=== PATIENT | female | born 1970 | race Caucasian/White ===

== ENCOUNTER 2017-02-26 16:46 | Emergency (ER) | payer MEDICAID, OTHER ==
[2017-02-26 16:57] VITALS: BP 113/71
--- NOTE | 2017-02-26 17:28 | UC ---
Breast Complaint - HPI Summary HPI Summary: 46 y/o female presents to the urgent care c/o left breast pain, redness and pus draining from the ereola around 0530 am. Pt reports she noticed her breast was red yesterday. Pain is 7/10 specially with touch. She has had a common cold for the past 3 weeks. Pt has not taken anything to alleviate pain. Pt states she has Hx of Breast augmentation for the past 20 years. and Hx of breast Cancer in the family. Pt deneis Hx of MRSA, no drainage from nipple, COB, chest pain, abdominal pain, N/V/D, recent lost of weight. - History of Current Complaint Hx Obtained From: Patient Breast Chief Complaint: Pain, Drainage - from left areola landon gland, Left , Other: Onset/Duration: Started Days Ago - 1 day, Still Present Timing: Constant Breast Pain Radiates To: Other: - localized to the left breasr Breast Pain Aggravating Factors: Palpation Breast Pain Alleviating Factors: Nothing Breast Associated Signs/Symptoms: Redness, Warmth - Additional Pertinent History Breast History: Breast Surgery (Augmentation) - 20 years ago - Allergy/Home Medications Allergies/Adverse Reactions: Allergies Allergy/AdvReac Type Severity Reaction Status Date / Time Codeine Allergy Nausea Verified 02/26/17 16:58 PMH/Surg Hx/FS Hx/Imm Hx Previously Healthy: Yes - Pt denies PMHx - Surgical History Surgical History: Yes Surgery Procedure, Year, and Place: Bilateral breast augmentation, - Family History Known Family History: Positive: Hypertension Family History: Breast cancer - Social History Occupation: Employed Full-time Lives: With Family Alcohol Use: None Substance Use Type: None Smoking Status (MU): Light Every Day Tobacco Smoker Type: Cigarettes Amount Used/How Often: 1/2 PPD - 1ppd Review of Systems Constitutional: Negative Skin: Other - Left breast pain, redness and draining pus Eyes: Negative ENT: Negative Respiratory: Negative Cardiovascular: Negative Gastrointestinal: Negative Genitourinary: Negative Motor: Negative Neurovascular: Negative Musculoskeletal: Negative Neurological: Negative Psychological: Negative Is Patient Immunocompromised?: No All Other Systems Reviewed And Are Negative: Yes Physical Exam Triage Information Reviewed: Yes Vital Signs: Initial Vital Signs Temp 98.6 F 02/26/17 16:54 Pulse 80 02/26/17 16:54 Resp 12 12/13/17 16:54 BP 113/71 02/26/17 16:54 Pulse Ox 100 02/26/17 16:54 - Additional Comments Vital Signs Reviewed: Yes General: well developed, well nourished female sitting in the examining table w/ o any apparent distress Eye Exam: Normal Eyes: Positive: Conjunctiva Clear - PERRLA, EOMI, fundi grossly normal ENT: Positive: Normal ENT inspection, Hearing grossly normal, Pharynx normal, TMs normal Neck: Positive: Supple, Nontender, No Lymphadenopathy Respiratory: Positive: Chest non-tender, Lungs clear, Normal breath sounds, No respiratory distress Cardiovascular: Positive: RRR, No Murmur, Pulses Normal, Brisk Capillary Refill Abdomen Description: Positive: Nontender, No Organomegaly, Soft. Negative: CVA Tenderness (R), CVA Tenderness (L) Bowel Sounds: Positive: Present Musculoskeletal: Positive: Strength Intact, ROM Intact, No Edema Neurological: Positive: Alert, Muscle Tone Normal Psychological Exam: Normal Skin: Positive: rashes - B/L breast symmetrical and normal contour.Positive erythematous patch with indistinct borders in the left breast around 7 o'clock and abou 2 .0cm x1cm in size with a Landon gland yellowish in color, no longer draining any discharge, tender to palpation warm to touch mild induration. No [place] observed, no masses palpated on both breast, no B/ L nipple drainage or retraction, no lymphadenopathy palpated Breast Pain Course/Dx - Course Course Of Treatment: 46 y/o female presents to the urgent care c/o left breast pain, redness and pus draining from the ereola around 0530 am. Pt reports she noticed her breast was red yesterday. Pain is 7/10 specially with touch. She has had a common cold for the past 3 weeks. Pt has not taken anything to alleviate pain. Pt states she has Hx of Breast augmentation for the past 20 years. and Hx of breast Cancer in the family. Pt deneis Hx of MRSA, no drainage from nipple, COB, chest pain, abdominal pain, N/V/D, recent lost of weight.Hx obtained. Pt with cellulitis of the left breast around 7o'clock with a Landon glans infected not longer draining any discharge, no masses of drainage from nipple observed on examination. Pt's hasn't done a mammogram screening or ultrasound in the past. Dr Hardwick consulted on Pt's symptoms. She recommended double ABX treatment and referral with surgeon for further treatment. Pt Rx Keflex PO, Bactrim PO, Ibuprofen Po for pain, and bacitracin topical ointment. Pt strongly advised to f/u referral with Surgeon Dr Pool as soon as possible for further evalaution and treatment or her PCP. Pt educated in the improtance of mammogram or ultrasound for further evalaution.All questions ansawered at Pt 's satisfaction. Pt understood and agreed with D/C instruction instructions. Pt left the clinic A&OX3 - Differential Diagnoses Differential Diagnosis/HQI/PQRI: Breast Abscess, Breast Mass, Candidia Dermatitis, Fibrocystic Breast Disease, Mastitis, Other: - cellulitis - Diagnoses Provider Diagnoses: Cellulitis of left breast - Provider Notifications Discussed Care Of Patient With: Ingrid Hardwick - Dr Hardwick agreed with Pt's plan of care Discharge - Discharge Plan Condition: Stable Disposition: HOME Prescriptions: Bacitracin OINTMENT* 1 applic TOPICAL TID #1 tube Cephalexin CAP* [Keflex CAP*] 500 mg PO QID #28 cap Ibuprofen TAB* [Motrin TAB* 800 MG] 800 mg PO Q6H PRN #20 tab PRN Reason: Pain Sulfamethox/Trimethoprim DS* [Bactrim DS 800/160 TAB*] 1 tab PO BID #20 tab Patient Education Materials: Cellulitis (ED) Referrals: [facility] [[facility]] - 1 Day Jefferson Pool MD [Medical Doctor] - 1 Day Additional Instructions: 1-Please take full course of Antibiotic to avoid resistance. 2- If redness and swelling doubles in size beyond what was demarcated after 48 hrs of taking antibiotic and fever develops please go to the ER immediately. 3-Apply warm compresses,and apply bacitracin topical antibiotic as directed 4-Please F/u Surgeon or your PCP 1-2 days for further evaluation and treatment to do an ultrasound or mammogram
== END 2017-02-26 17:36 | disposition home or self-care (01) ==
LOC: UCEAST 16:46
DX: N61.0 Mastitis without abscess (principal); Z88.5 Allergy status to narcotic agent; F17.210 Nicotine dependence, cigarettes, uncomplicated
CPT/HCPCS: 99212; G0463

== ENCOUNTER 2018-03-04 14:35 | Emergency (ER) | payer SELFPAY ==
[2018-03-04 14:46] VITALS: BP 125/84
--- NOTE | 2018-03-04 16:04 | UC ---
FLU HPI - HPI Summary HPI Summary: 47-year-old female presents with 3 day history of sore throat and fever associated with nasal congestion, and clear nasal discharge, nonproductive cough , fatigue, body aches, and general malaise. Max fever 101 F. Denies chest pain, shortness of breath, wheezing, abdominal pain, nausea, or vomiting. - History of Current Complaint Chief Complaint: UCGeneralIllness Stated Complaint: SORE THROAT, BODY ACHES Time Seen by Provider: 03/04/18 15:42 Hx Obtained From: Patient Hx Last Menstrual Period: 02/27/18 Pain Intensity: 10 - Allergy/Home Medications Allergies/Adverse Reactions: Allergies Allergy/AdvReac Type Severity Reaction Status Date / Time codeine Allergy Intermediate Nausea Verified 03/04/18 14:45 Home Medications: Home Medications NK [No Home Medications Reported] 03/04/18 [History Confirmed 03/04/18] PMH/Surg Hx/FS Hx/Imm Hx Previously Healthy: Yes - Denies significant PMH. - Surgical History Surgical History: Yes Surgery Procedure, Year, and Place: Bilateral breast augmentation, - Family History Known Family History: Positive: Hypertension Family History: Breast cancer - Social History Occupation: Employed Full-time Lives: With Family Alcohol Use: None Substance Use Type: None Smoking Status (MU): Heavy Every Day Tobacco Smoker Type: Cigarettes Amount Used/How Often: 1/2 PPD - 1ppd Review of Systems All Other Systems Reviewed And Are Negative: Yes Constitutional: Positive: Fever, Chills, Fatigue Skin: Negative: Rash Eyes: Negative: Drainage, Eye Redness ENT: Positive: Sore Throat, Ear Ache, Nasal Discharge, Sinus Congestion. Negative: Sinus Pain/Tenderness Respiratory: Negative: Shortness Of Breath, Cough Cardiovascular: Negative: Palpitations, Chest Pain Gastrointestinal: Negative: Abdominal Pain, Vomiting, Nausea Is Patient Immunocompromised?: No Physical Exam - Summary Physical Exam Summary: GENERAL APPEARANCE: Well developed, well nourished, alert and cooperative, and appears to be in no acute distress. EYES: Conjunctiva clear. No discharge. Vision is grossly intact. EARS: External auditory canals and tympanic membranes clear, hearing grossly intact. NOSE: Nasal congestion with clear nasal discharge. THROAT: Pharyngeal erythema without tonsilar edema or exudate. Oral cavity normal. Teeth and gingiva in good general condition. NECK: Neck supple, non-tender without lymphadenopathy. CARDIAC: Normal S1 and S2. No S3, S4 or murmurs. Rhythm is regular. There is no peripheral edema, cyanosis or pallor. Extremities are warm and well perfused. Capillary refill is less than 2 seconds. LUNGS: Clear to auscultation and percussion without rales, rhonchi, wheezing or diminished breath sounds. ABDOMEN: Positive bowel sounds. Soft, nondistended, nontender. No guarding or rebound. No masses or hepatosplenomegally. MUSKULOSKELETAL: ROM intact to all extremities. No joint erythema or tenderness. Normal muscular development. Normal gait. SKIN: Skin normal color, texture and turgor with no lesions or eruptions. Triage Information Reviewed: Yes Vital Signs: Initial Vital Signs Temp 98.0 F 03/04/18 14:41 Pulse 110 03/04/18 14:41 Resp 18 03/04/18 14:41 BP 125/84 03/04/18 14:41 Pulse Ox 100 03/04/18 14:41 Vital Signs Reviewed: Yes Diagnostics - Laboratory Diagnostic Studies Completed/Ordered: Rapid strep negative. Rapid flu negative. Flu Course/Dx - Course Course Of Treatment: 47-year-old female presents with 3 day history of sore throat and fever associated with nasal congestion, and clear nasal discharge, nonproductive cough, fatigue, body aches, and general malaise. Afebrile. Mild tachycardia otherwise vital signs stable. Exam revealed nasal congestion with clear nasal discharge, pharyngeal erythema without tonsillar swelling or exudate , nonproductive cough otherwise the exam was unremarkable. Rapid strep negative. Rapid flu negative. Recommending symptomatic treatment for viral URI. She is to follow-up with her primary care provider in 5-7 days if symptoms persist. Warning symptoms were reviewed with the patient. Verbalizes understanding and agrees with plan of care. - Differential Dx/Diagnosis Differential Diagnosis/HQI/PQRI: Bronchitis, Influenza, Pneumonia, Upper Respiratory Infection Provider Diagnosis: Viral URI with cough Discharge - Sign-Out/Discharge Documenting (check all that apply): Patient Departure All imaging exams completed and their final reports reviewed: No Studies - Discharge Plan Condition: Stable Disposition: HOME Patient Education Materials: Upper Respiratory Infection (ED) Forms: *Work Release Referrals: No Primary Care Phys,NOPCP [Primary Care Provider] - Additional Instructions: The rapid strep test performed in the clinic today was negative. The rapid flu was also negative. Your history and exam are consistent with viral upper respiratory infection. Viral infections do not respond to antibiotics and typically run their course over 7-10 days. Get plenty of rest. Use a saline rinse kit such as Neti Pot or NeilMed at least twice a day. Start fluticasone nasal spray 2 sprays each nostril once a day. Take an over the counter decongestant such as Sudafed according to directions as needed for nasal congestion. Take acetaminophen (Tylenol) or ibuprofen (Advil, Motrin) according to directions as needed for fever or pain. Use salt water gargles several times a day if you have a sore throat. You may also use Chloraseptic spray or Cepacol lozenges for some temporary pain relief from your sore throat. Follow-up with your primary care provider in 5-7 days if symptoms persist. Seek immediate medical attention if you have a persistent fever greater than 100.5 F despite taking acetaminophen or ibuprofen, you are unable to swallow, has difficulty breathing, or have any worsening of symptoms. - Billing Disposition and Condition Condition: STABLE Disposition: Home - Attestation Statements Provider Attestation: Per institutional requirements, I have reviewed the chart, however, I was not consulted specifically or made aware of this patient by the midlevel provider. I did not personally evaluate, interact with , or disposition this patient.
== END 2018-03-04 16:40 | disposition home or self-care (01) ==
LOC: UCEAST 14:35
DX: R05 Cough (principal); J06.9 Acute upper respiratory infection, unspecified; Z88.5 Allergy status to narcotic agent; F17.210 Nicotine dependence, cigarettes, uncomplicated
CPT/HCPCS: 87651; 99211; G0463